=== PATIENT | female | born 1960 | race Caucasian/White ===

== ENCOUNTER → 2016-10-30 17:15 | Outpatient (CLI) | payer OTHER | END | disposition home or self-care (01) | LOC: D.MAMMO 14:15 | DX: Z12.31 Encounter for screening mammogram for malignant neoplasm of breast (principal) ==

== ENCOUNTER 2016-12-13 05:09 | Inpatient (IN) | payer OTHER ==
[~2016-12-13] VITALS: Ht 175.3 cm; Wt 72.7 kg
[2016-12-13 06:27] LABS: BASOPHILS 0.4 % (0-2); EOSINOPHILS 1.3 % (0-7); HEMATOCRIT 33.4 % (36.0-48.0); HEMOGLOBIN 11.6 g/dL (12-16); IMMATURE GRANULOCYTES 0.5 % (0-5); LYMPHOCYTES 16.2 % (15-50); MCH 36.5 pg (26.0-34.0); MCHC 34.7 g/dL (31.0-37.0); MEAN PLATELET VOLUME 12.3 fL (7.4-10.4); NEUTROPHILS 73.6 % (40-80); RBC 3.18 10x6/uL (4.00-5.40); RDW 14.2 % (11.5-14.5); WBC 11.1 10x3/uL (4.8-10.8)
[2016-12-13 06:47] LABS: ALKALINE PHOSPHATASE 145 U/L (46-116); ALT (SGPT) 37 U/L (10-68); BILIRUBIN - TOTAL 5.59 mg/dL (0.2-1.3); CALC OSMOLALITY 267 mosm/kg (275-300); CALCIUM 7.8 mg/dL (8.5-10.1); CARBON DIOXIDE 26.7 mmol/L (21.0-32.0); CHLORIDE - SERUM 97 mmol/L (98-107); CREATININE - SERUM 0.6 mg/dL (0.6-1.3); POTASSIUM - SERUM 3.1 mmol/L (3.5-5.1); PROTEIN - SERUM 7.9 g/dL (6.4-8.2); SODIUM 135 mmol/L (136-145); UREA NITROGEN 7 mg/dL (7-18); eGFR NON AFRICAN AMERICAN > 90 mL/min (90-120)
[2016-12-13 06:51] LABS: GLUCOSE 93 mg/dL (74-106)
[2016-12-13 06:54] LABS: PLATELET COUNT 81 10x3/uL (130-400); PLATELET ESTIMATE DECREASED
[2016-12-13 08:45] LABS: AMYLASE - SERUM 26 U/L (25-115); LIPASE 88 U/L (73-393)
[2016-12-13 08:51] LABS: APPEARANCE HAZY (CLEAR); BILIRUBIN 2+ (NEGATIVE); COLOR AMBER (YELLOW); GLUCOSE NEGATIVE (NEGATIVE); KETONE MODERATE mg/dL (NEGATIVE); LEUKOCYTE ESTERASE 1+ (NEGATIVE); NITRITE NEGATIVE (NEGATIVE); PROTEIN NEGATIVE (NEGATIVE); SPECIFIC GRAVITY 1.015 (1.005-1.020)
[2016-12-13 08:53] LABS: BACTERIA MODERATE /hpf (NONE SEEN); MUCUS <1+ /lpf (NONE SEEN); RED CELLS - URINE RARE /hpf (0-5)
[2016-12-13 08:57] LABS: UDS - AMPHET NEGATIVE QUAL (NEGATIVE); UDS - BARB NEGATIVE QUAL (NEGATIVE); UDS - BENZO POSITIVE QUAL (NEGATIVE); UDS - COCAINE NEGATIVE QUAL (NEGATIVE); UDS - METH NEGATIVE QUAL (NEGATIVE); UDS - OPIATE NEGATIVE QUAL (NEGATIVE); UDS - PCP NEGATIVE QUAL (NEGATIVE); UDS - THC NEGATIVE QUAL (NEGATIVE)
[2016-12-13] MEDS ORDERED: SYNTHROID175 MCG PO (12:22)
[2016-12-13] MEDS ORDERED: GEMFIBROZIL600 MG PO (12:22)
[2016-12-13 12:26] VITALS: BP 131/64
[2016-12-13 13:13] VITALS: BP 131/64; Ht 175.3 cm; Wt 72.7 kg
[2016-12-13 15:41] VITALS: BP 132/69
[2016-12-13 15:44] LABS: BILIRUBIN - DIRECT 2.7 mg/dL (0.00-0.30)
[2016-12-13 16:23] LABS: BILIRUBIN - INDIRECT 2.68 mg/dL (0.00-1.00); BILIRUBIN - TOTAL 5.38 mg/dL (0.2-1.3)
[2016-12-13 20:00] VITALS: BP 99/51
--- NOTE | 2016-12-13 20:30 | NUR ---
RECIEVED AWAKE,ALERT.UP AMBULATING IN ROOM. IV INTACT TO RIGHT FOREARM WITHOUT REDNESS OR EDEMA NOTED.NO COMPLAINTS VOICED AT THIS TIME. DR LOOMIS IN TO SEE PATIENT.
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
[2016-12-14] VITALS: BP 106/60
--- NOTE | 2016-12-14 03:37 | NUR ---
PATIENT RESTING IN BED WITH EYES CLOSED AND NO VISIBLE SIGNS OF DISTRESS. BED IN LOWEST POSITION AND CALL LIGHT WITHIN REACH.
[2016-12-14 04:00] VITALS: BP 95/57
[2016-12-14 04:32] LABS: BASOPHILS 0.5 % (0-2); EOSINOPHILS 2.3 % (0-7); HEMOGLOBIN 10.6 g/dL (12-16); IMMATURE GRANULOCYTES 0.3 % (0-5); LYMPHOCYTES 25.4 % (15-50); MCH 36.3 pg (26.0-34.0); MCHC 34.2 g/dL (31.0-37.0); MCV 106.2 fL (80.0-100.0); MEAN PLATELET VOLUME 13.1 fL (7.4-10.4); MONOCYTES 10.9 % (2-11); NEUTROPHILS 60.6 % (40-80); PLATELET COUNT 75 10x3/uL (130-400); RBC 2.92 10x6/uL (4.00-5.40); RDW 14.4 % (11.5-14.5); WBC 9.3 10x3/uL (4.8-10.8)
[2016-12-14 04:40] LABS: APTT 34.6 SECONDS (22.8-39.4); INR 1.47 (0.85-1.17); PROTIME 17.7 SECONDS (11.6-15.0)
[2016-12-14 04:47] LABS: ALBUMIN 2.7 g/dL (3.4-5.0); ALKALINE PHOSPHATASE 123 U/L (46-116); ALT (SGPT) 30 U/L (10-68); BILIRUBIN - DIRECT 2.41 mg/dL (0.00-0.30); BILIRUBIN - INDIRECT 2.86 mg/dL (0.00-1.00); BILIRUBIN - TOTAL 5.27 mg/dL (0.2-1.3); CALCIUM 7.3 mg/dL (8.5-10.1); CARBON DIOXIDE 26.1 mmol/L (21.0-32.0); CHLORIDE - SERUM 100 mmol/L (98-107); CREATININE - SERUM 0.7 mg/dL (0.6-1.3); MAGNESIUM - SERUM 1.3 mg/dL (1.8-2.4); PHOSPHOROUS 2.5 mg/dL (2.5-4.9); PROTEIN - SERUM 7.1 g/dL (6.4-8.2); SODIUM 136 mmol/L (136-145); UREA NITROGEN 6 mg/dL (7-18); eGFR NON AFRICAN AMERICAN > 90 mL/min (90-120)
[2016-12-14 04:48] LABS: CALC OSMOLALITY 267 mosm/kg (275-300); GLUCOSE 70 mg/dL (74-106); POTASSIUM - SERUM 3.6 mmol/L (3.5-5.1)
--- NOTE | 2016-12-14 05:54 | NUR ---
NO CHANGE IN ASSESSMENT. CL IN REACH
--- NOTE | 2016-12-14 07:30 | NUR ---
RECIEVED PT DURING WALKING ROUNDS, PT SITTING UP IN BED WITH IV ALARMING. MORE FLUID ADDED AT THIS TIME. PT ASKS ABOUT BEING DISCHARGED INFORMED HER THAT THE DOCTOR WOULD HAVE TO PUT IN ORDERS. ASSESSMENT DONE PER FLOWSHEET. BED IN LOW POSITION AND CALL LIGHT WITHIN REACH. WILL CONTINUE TO MONITOR.
[2016-12-14 08:09] VITALS: BP 116/55
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
--- NOTE | 2016-12-14 08:35 | NUR ---
DISCHARGE INSTRUCTIONS GIVEN, PT TOOK OUT OWN IV. DISCHARGED TO HOME.
--- NOTE | 2016-12-14 09:48 | NUR ---
CM attempted to see patient multiple times, and spoke with float coordinator (SALLY) and she stated that the patient was discharged and refused everything and the patient said that she was not an alcoholic and did not need any help, she was not waiting for CM.
== END 2016-12-14 08:58 | disposition home or self-care (01) | DRG 446 ==
LOC: D.ER 05:09 → D.MS 11:54
PROVIDERS: Emergency Medicine; Family Medicine; Radiology Diagnostic Radiology; Surgery; ADMIT Family Medicine
DX: K83.8 Other specified diseases of biliary tract (principal); K70.30 Alcoholic cirrhosis of liver without ascites; D64.9 Anemia, unspecified; D69.6 Thrombocytopenia, unspecified; F10.10 Alcohol abuse, uncomplicated; K82.8 Other specified diseases of gallbladder; E03.9 Hypothyroidism, unspecified; F41.0 Panic disorder [episodic paroxysmal anxiety]; Z81.1 Family history of alcohol abuse and dependence

== ENCOUNTER → 2017-01-10 17:08 | Outpatient (CLI) | payer OTHER ==
[2016-12-13 13:13] VITALS: BMI 23.6
[~2017-01-10 17:08] MED LIST: GEMFIBROZIL600 MG PO; SYNTHROID175 MCG PO
== END | disposition home or self-care (01) ==
LOC: D.MAMMO 12-19 13:30
DX: R92.8 Other abnormal and inconclusive findings on diagnostic imaging of breast (principal)

== ENCOUNTER → 2017-01-18 08:33 | Outpatient (CLI) | payer OTHER ==
[2016-12-13 13:13] VITALS: BMI 23.6
== END | disposition home or self-care (01) ==
LOC: D.MRI 08:00
DX: E80.6 Other disorders of bilirubin metabolism (principal)

== ENCOUNTER → 2017-09-09 19:33 | Outpatient (CLI) | payer OTHER ==
[2016-12-13 13:13] VITALS: BMI 23.6
== END | disposition home or self-care (01) ==
LOC: D.MAMMO 08-20 08:30
DX: R92.8 Other abnormal and inconclusive findings on diagnostic imaging of breast (principal)

== ENCOUNTER → 2017-10-24 08:53 | Outpatient (CLI) | payer OTHER ==
[2016-12-13 13:13] VITALS: BMI 23.6
[2017-10-24 10:30] LABS: INR 1.53 (0.85-1.17); PROTIME 17.9 SECONDS (11.6-15.0)
[2017-10-24 10:34] LABS: % SATURATION 84 % (15-55); IRON 164 ug/dl (35-150); TOTAL IRON BIND CAPACITY 195 ug/dl (260-445)
[2017-10-24 10:35] LABS: UNSAT IRON BIND CAPACITY 31 ug/dl (150-375)
[2017-10-24 10:49] LABS: ALBUMIN 3.2 g/dL (3.4-5.0); BILIRUBIN - DIRECT 1.2 mg/dL (0.00-0.30); BILIRUBIN - INDIRECT 2.18 mg/dL (0.00-1.00); BILIRUBIN - TOTAL 3.38 mg/dL (0.2-1.3); CHOL - HDL RATIO 4.1 ratio (2.3-4.1); LDL-HDL RATIO 2.7 ratio (1.5-3.5); PROTEIN - SERUM 8.9 g/dL (6.4-8.2); T4 THYROXINE 14.3 ug/dL (4.7-13.3); THYROID STIMULATING HORMONE 15.73 uIU/mL (0.36-3.74)
[2017-10-24 11:20] LABS: ERYTHROCYTE SEDIMENTATION RATE 51 mm/hr (0-30)
[2017-10-25 09:23] LABS: HEPATITIS C ANTIBODY <0.1 (0.0-0.9)
[2017-10-25 10:23] LABS: ALPHA FETOPROTEIN -(TUMOR MRK) 10.1 ng/mL (0.0-8.3)
[2017-10-25 12:19] LABS: ANA REFLEX - DIRECT Negative (Negative)
[2017-10-25 14:27] LABS: SPE - A/G RATIO 0.7 (0.7-1.7); SPE - ALBUMIN 3.3 g/dL (2.9-4.4); SPE - ALPHA-1 GLOBULIN 0.2 g/dL (0.0-0.4); SPE - ALPHA-2 GLOBULIN 0.5 g/dL (0.4-1.0); SPE - BETA GLOBULIN 1.5 g/dL (0.7-1.3); SPE - GAMMA GLOBULIN 2.6 g/dL (0.4-1.8); SPE - M-SPIKE Not Observed g/dL (Not Observed); SPE - TOTAL PROTEIN 8.1 g/dL (6.0-8.5)
[2017-10-27 09:08] LABS: SMOOTH MUSCLE ABS (ACTIN) 37 Units (0-19)
== END | disposition home or self-care (01) ==
LOC: D.US 08:53
PROVIDERS: Internal Medicine Gastroenterology
DX: R17 Unspecified jaundice (principal); K72.90 Hepatic failure, unspecified without coma; R94.5 Abnormal results of liver function studies; R11.2 Nausea with vomiting, unspecified

== ENCOUNTER 2018-11-03 20:09 | Inpatient (IN) | payer OTHER ==
[~2018-11-03] VITALS: Ht 175.3 cm; Wt 68.0 kg
--- NOTE | ~2018-11-03 | EC ---
PATIENT:DENISE WHITEHEAD DATE OF SERVICE: 11/03/18 SEX: F MEDICAL RECORD: [id number] DATE OF : 64 LOCATION:D. D.121 AGE OF PATIENT: 58 ADMISSION DATE: 11/03/18 REFERRING PHYSICIAN: INTERPRETING PHYSICIAN: DARLEEN BLAIR MD ECHOCARDIOGRAM REPORT ECHO CHARGES 4 ECHO COMPLETE Date: 11/04/18 CLINICAL DIAGNOSIS: SOB ECHOCARDIOGRAPHIC MEASUREMENTS (adult normal given) AC root (d.<3.7cm) 2.4 cm LV Septum d (<1.2 cm> 0.6 cm Valve Excursion 1.5 cm LV Septum (systole) 1.1 cm Left Atria (s.<4.0cm> 3.5 cm LVPW d(<1.2cm) 0.6 cm RV (d.<2.3cm) 2.9 cm LVPW (sytole) 0.7 cm LV diastole(<5.6CM) 6.1 cm MV E-F(>70mm/sec) cm LV systole 4.9 cm LVOT Diameter 2.0 cm MV exc.(>10mm) cm Est.ejection fraction (50-75%) % DOPPLER: LVIT cm/sec A 80.0 cm/sec E 65.0 cm/sec LA cm/sec RVSP 41.8 mmHg LVOT 183 cm/sec AOP1/2T m/s Asc. Ao 186 cm/sec RVOT 97.0 cm/sec RA cm/sec PA 107 cm/sec AV Gradient Peak 13.9 mmHg AV Mean 8.4 mmHg AV Area 2.6 cm MV Gradient Peak 4.0 mmHg MV Mean 2.9 mmHg MV Area cm COMMENTS: Commodities Manager: Ash [employer] Manager: 1 Dr. Blair TAPE# PACS Pericardial Effusion N DATE OF SERVICE: 11/04/2018 FINDINGS: 1. Left ventricular chamber size is within normal limits. Left ventricular systolic function is normal. Overall ejection fraction estimated at 60%. 2. Left atrium is within normal limits. Right atrium and right ventricular chamber sizes are mildly dilated. 3. Valvular structures have normal structure and motion. 4. Doppler interrogation reveals moderate mitral regurgitation, moderate tricuspid regurgitation, no other valvular insufficiency or stenosis. Pulmonary ECHOCARDIOGRAM REPORT [id number] DENISE WHITEHEAD systolic pressure is mildly elevated, estimated at 42 mmHg. 5. Small pericardial effusion is present. This is not hemodynamically significant. Pleural effusion is noted as well. 6. No evidence of left ventricular thrombus. TRANSINT:[id number] Voice Confirmation ID: [id number] DOCUMENT ID: [id number] DARLEEN BLAIR MD CC: [id number] DICTATION DATE: 11/05/18 1020 HEART COORDINATOR: 11/05/18 1104 ADM IN [facility] [address] [id number]
[2018-11-03] MEDS ORDERED: ALDACTONE25 MG PO (20:34)
[2018-11-03 21:34] LABS: BASOPHILS 0.9 % (0-2); EOSINOPHILS 0.7 % (0-7); IMMATURE GRANULOCYTES 1.2 % (0-5); LYMPHOCYTES 30.7 % (15-50); MCH 40.8 pg (26.0-34.0); MCHC 34.1 g/dL (31.0-37.0); MCV 119.6 fL (80.0-100.0); MEAN PLATELET VOLUME 9.2 fL (7.4-10.4); MONOCYTES 18.2 % (2-11); NEUTROPHILS 48.3 % (40-80); RDW 15.6 % (11.5-14.5); WBC 7.6 10x3/uL (4.8-10.8)
[2018-11-03 21:45] LABS: APTT 48.4 SECONDS (22.8-39.4); INR 4.37 (0.85-1.17); PROTIME 40.9 SECONDS (11.6-15.0)
[2018-11-03 21:47] LABS: HEMOGLOBIN 7.5 g/dL (12-16); PLATELET COUNT 104 10x3/uL (130-400); RBC 1.84 10x6/uL (4.00-5.40)
[2018-11-03 22:02] LABS: ALBUMIN 2.1 g/dL (3.4-5.0); ALKALINE PHOSPHATASE 166 U/L (46-116); ALT (SGPT) 42 U/L (10-68); BILIRUBIN - TOTAL 14.02 mg/dL (0.2-1.3); CALC OSMOLALITY 270 mosm/kg (275-300); CALCIUM 8.2 mg/dL (8.5-10.1); CARBON DIOXIDE 29.2 mmol/L (21.0-32.0); CHLORIDE - SERUM 96 mmol/L (98-107); CREATININE - SERUM 0.6 mg/dL (0.6-1.3); POTASSIUM - SERUM 4.1 mmol/L (3.5-5.1); PROTEIN - SERUM 7.4 g/dL (6.4-8.2); SODIUM 133 mmol/L (136-145); UREA NITROGEN 7 mg/dL (7-18); eGFR NON AFRICAN AMERICAN > 90 mL/min (90-120)
[2018-11-03 22:04] LABS: GLUCOSE 221 mg/dL (74-106)
[2018-11-03 22:09] VITALS: BP 117/64
[2018-11-03 22:10] LABS: CKMB 0.7 U/L (0.0-3.6); CREATINE KINASE 50 UL (21-215); PRO BNP 305 pg/mL (0-125)
[2018-11-03 22:11] LABS: TROPONIN-I < 0.017 ng/mL (0.000-0.060)
[2018-11-03 23:52] VITALS: BP 124/52
[2018-11-04] VITALS (8 sets, daily range): BP systolic 97–123; BP diastolic 38–63; Ht 175.3 cm; Wt 68.0 kg
[2018-11-04 00:26] LABS: BILIRUBIN - DIRECT 6.08 mg/dL (0.00-0.30); BILIRUBIN - INDIRECT 7.94 mg/dL (0.00-1.00)
[2018-11-04 09:01] LABS: APTT 48.8 SECONDS (22.8-39.4); MCH 36.5 pg (26.0-34.0); MCHC 35.2 g/dL (31.0-37.0); MEAN PLATELET VOLUME 9.5 fL (7.4-10.4)
[2018-11-04 09:04] LABS: HEMATOCRIT 28.4 % (36.0-48.0); MCV 103.6 fL (80.0-100.0); PLATELET COUNT 81 10x3/uL (130-400); RBC 2.74 10x6/uL (4.00-5.40); WBC 3.6 10x3/uL (4.8-10.8)
[2018-11-04 09:09] LABS: % SATURATION 62 % (15-55); IRON 80 ug/dl (35-150); TOTAL IRON BIND CAPACITY 128 ug/dl (260-445)
[2018-11-04 09:10] LABS: UNSAT IRON BIND CAPACITY 48 ug/dl (150-375)
[2018-11-04 09:18] LABS: INR 3.61 (0.85-1.17); PROTIME 36.3 SECONDS (11.6-15.0)
[2018-11-04 09:43] LABS: ALBUMIN 2.1 g/dL (3.4-5.0); ALKALINE PHOSPHATASE 168 U/L (46-116); ALT (SGPT) 45 U/L (10-68); BILIRUBIN - TOTAL 14.65 mg/dL (0.2-1.3); CALCIUM 7.9 mg/dL (8.5-10.1); CARBON DIOXIDE 22.9 mmol/L (21.0-32.0); CHLORIDE - SERUM 95 mmol/L (98-107); POTASSIUM - SERUM 4.2 mmol/L (3.5-5.1); PROTEIN - SERUM 7.7 g/dL (6.4-8.2); SODIUM 130 mmol/L (136-145); T4 THYROXIN - FREE 1.46 ng/dL (0.76-1.46); THYROID STIMULATING HORMONE 1.77 uIU/mL (0.36-3.74); UREA NITROGEN 7 mg/dL (7-18)
[2018-11-04 09:46] LABS: CALC OSMOLALITY 271 mosm/kg (275-300); CREATININE - SERUM 0.3 mg/dL (0.6-1.3); FERRITIN 1698 ng/mL (3-244); GLUCOSE 324 mg/dL (74-106); MAGNESIUM - SERUM 1.4 mg/dL (1.8-2.4); eGFR NON AFRICAN AMERICAN > 90 mL/min (90-120)
[2018-11-04 09:56] LABS: LYMPHOCYTES 11 % (15-50); MONOCYTES 4 % (2-11); NEUTROPHILS 84 % (40-80); PLATELET ESTIMATE DECREASED
[2018-11-04 14:14] LABS: APPEARANCE CLEAR (CLEAR); BILIRUBIN NEGATIVE (NEGATIVE); COLOR YELLOW (YELLOW); GLUCOSE 1000 mg/dL (NEGATIVE); KETONE NEGATIVE (NEGATIVE); NITRITE NEGATIVE (NEGATIVE); PROTEIN NEGATIVE (NEGATIVE); UROBILINOGEN NORMAL (NORMAL)
[2018-11-05] VITALS (7 sets, daily range): BP systolic 104–118; BP diastolic 35–63
[2018-11-05 07:03] LABS: BASOPHILS 0 % (0-2); EOSINOPHILS 0 % (0-7); HEMATOCRIT 25.6 % (36.0-48.0); IMMATURE GRANULOCYTES 0.4 % (0-5); LYMPHOCYTES 6.7 % (15-50); MCH 36.3 pg (26.0-34.0); MCHC 35.2 g/dL (31.0-37.0); MCV 103.2 fL (80.0-100.0); MEAN PLATELET VOLUME 9.2 fL (7.4-10.4); MONOCYTES 8.4 % (2-11); NEUTROPHILS 84.5 % (40-80); PLATELET COUNT 76 10x3/uL (130-400); RBC 2.48 10x6/uL (4.00-5.40)
[2018-11-05 07:19] LABS: WBC 9.2 10x3/uL (4.8-10.8)
[2018-11-05 07:29] LABS: APTT 51.1 SECONDS (22.8-39.4); INR 4.95 (0.85-1.17)
[2018-11-05 07:30] LABS: PROTIME 45.2 SECONDS (11.6-15.0)
[2018-11-05 07:56] LABS: ALBUMIN 2.1 g/dL (3.4-5.0); ALKALINE PHOSPHATASE 151 U/L (46-116); ALT (SGPT) 42 U/L (10-68); CALC OSMOLALITY 280 mosm/kg (275-300); CALCIUM 7.5 mg/dL (8.5-10.1); CARBON DIOXIDE 30.9 mmol/L (21.0-32.0); CHLORIDE - SERUM 96 mmol/L (98-107); CREATININE - SERUM 0.5 mg/dL (0.6-1.3); MAGNESIUM - SERUM 1.2 mg/dL (1.8-2.4); POTASSIUM - SERUM 3.5 mmol/L (3.5-5.1); SODIUM 132 mmol/L (136-145); UREA NITROGEN 10 mg/dL (7-18); eGFR NON AFRICAN AMERICAN > 90 mL/min (90-120)
[2018-11-05 08:06] LABS: GLUCOSE 409 mg/dL (74-106)
[2018-11-05 08:37] LABS: PLATELET ESTIMATE DECREASED
[2018-11-05 08:38] LABS: ANISOCYTOSIS 1+; POIKILOCYTOSIS OCC; TARGET CELLS OCC
[2018-11-05 08:39] LABS: CRENATED CELLS OCC; ROULEAUX OCC
[2018-11-05 12:12] LABS: FOLATE (FOLIC ACID) - SERUM 7.1 ng/mL (>3.0)
--- NOTE | 2018-11-05 14:07 | MORECARE ---
CASE MANAGEMENT DISCHARGE SUMMARY PATIENT: DENISE WHITEHEAD AG UNIT: [id number] ADM DATE: 11/03/18 AGE: 58 : 64 SEX: F ROOM/BED: D.1213 AUTHOR: MARY BRITTON PHYSICIAN: REFERRING PHYSICIAN: RESHMA REYES MD DATE OF SERVICE: 11/05/18 Discharge Plan Patient Name: DENISE WHITEHEAD [facility] [facility] 1960 Planned Disposition: Home Anticipated Discharge Date: 11/07/18 Discharge Date: Expected LOS: 4 Initial Reviewer: [email or web address] Initial Review Date: 11/04/2018 Generated: 11/05/18 3:07 pm DCPIA - Discharge Planning Initial Assessment Updated by [email or web address]: Thi Portillo on 11/05/18 2:06 pm * Is the patient Alert and Oriented? Yes * How many steps to enter\exit or inside your home? * PCP does not have a PCP * Pharmacy [facility] [address] * Preadmission Environment Home Alone * ADLs Independent * Equipment Cane Rolling Walker * List name and contact numbers for known caregivers / representatives who currently or will assist patient after discharge: Asuncion Smith - Sister - [phone] Jammie Rust - mother - [phone] * Verbal permission to speak to the caregivers and representatives has been obtained from the patient. Yes * Community resources currently utilized None * Additional services required to return to the preadmission environment? No * Can the patient safely return to the preadmission environment? Yes * Has this patient been hospitalized within the prior 30 days at any hospital? No Patient Name: DENISE WHITEHEAD Page [id number] at 1407 All edits/amendments must be made on the electronic document DICTATION DATE: 11/05/181406 ASH HANDLER: HIEU 11/05/187 RPT#: [id number] DC DATE: STATUS: ADM IN [facility] [address] [place] [address] END OF REPORT
[2018-11-05 14:11] LABS: ALPHA FETOPROTEIN -(TUMOR MRK) 3.2 ng/mL (0.0-8.3); CA125 458.6 U/mL (0.0-38.1)
--- NOTE | 2018-11-05 14:17 | MORECARE ---
CASE MANAGEMENT DISCHARGE SUMMARY PATIENT: DENISE WHITEHEAD UNIT: [id number] ADM DATE: 11/03/18 AGE: 58 : 64 SEX: F ROOM/BED: D.1213 AUTHOR: REBADOC PHYSICIAN: REFERRING PHYSICIAN: RESHMA REYES MD DATE OF SERVICE: 11/05/18 Discharge Plan Patient Name: DENISE WHITEHEAD Facility: [facility]:[place] : 1960 Planned Disposition: Home Anticipated Discharge Date: 11/07/18 Discharge Date: Expected LOS: 4 Initial Reviewer: [email or web address] Initial Review Date: 11/04/2018 Generated: 11/05/18 3:17 pm Comments DCP- Discharge Planning Updated by [email or web address]: Thi Portillo on 11/05/18 1:[address] Patient Name: DENISE WHITEHEAD Admission Status: ER Accout number: [id number] Admission Date: 11-03-2018 : 1960 Admission Diagnosis: Attending: RESHMA REYES Current LOS: 2 Anticipated DC Date: 11-07-2018 Planned Disposition: Home Primary Insurance: [facility] MEDICAID DC PLANNING NOTE: CM met with patient to complete initial dc planning assessment. CM educated patient on the CM role and verbal consent given by patient to complete assessment. CM verified address, phone number, and emergency contact names and numbers. Patient lives at home alone and verbalized she is independent in her care at home. At discharge patient plans to return home alone and feels this is a safe discharge. CM discussed availability of home health, rehab services, and medical equipment. Patient denied known discharge needs at this time. CM will continue to follow and will assist as needed with dc plans/needs. Outreach Nurse: Thi Portillo RN, [facility] DCPIA - Discharge Planning Initial Assessment Updated by [email or web address]: Thi Portillo on 11/05/18 2:06 pm * Is the patient Alert and Oriented? Yes * How many steps to enter\exit or inside your home? * PCP does not have a PCP * Pharmacy [facility] [address] * Preadmission Environment Home Alone * ADLs Independent * Equipment Cane Rolling Walker * List name and contact numbers for known caregivers / representatives who currently or will assist patient after discharge: Asuncion Smith - Sister - [phone] Jammie Rust - mother - [phone] * Verbal permission to speak to the caregivers and representatives has been obtained from the patient. Yes * Community resources currently utilized None * Additional services required to return to the preadmission environment? No * Can the patient safely return to the preadmission environment? Yes * Has this patient been hospitalized within the prior 30 days at any hospital? No Last DP export: 11/05/18 1:07 p Patient Name: DENISE WHITEHEAD Page 34121 at 1417 All edits/amendments must be made on the electronic document DICTATION DATE: 11/05/181415 [place] ATTENDANT: HIEU 11/05/181415 RPT#: [id number] DC DATE: STATUS: ADM IN [facility] [address] [place] [address] END OF REPORT
[2018-11-05 20:06] LABS: HEPATITIS C ANTIBODY 0.1 S/CO RAT (0.0-0.9)
[2018-11-06] VITALS: BP 105/34
[2018-11-06 04:00] VITALS: BP 113/51
[2018-11-06 07:10] LABS: BASOPHILS 0.1 % (0-2); EOSINOPHILS 0.9 % (0-7); HEMATOCRIT 25.8 % (36.0-48.0); IMMATURE GRANULOCYTES 0.4 % (0-5); LYMPHOCYTES 20.1 % (15-50); MCH 36.7 pg (26.0-34.0); MCHC 34.9 g/dL (31.0-37.0); MEAN PLATELET VOLUME 10.3 fL (7.4-10.4); MONOCYTES 12.5 % (2-11); PLATELET COUNT 79 10x3/uL (130-400); RBC 2.45 10x6/uL (4.00-5.40); WBC 9.2 10x3/uL (4.8-10.8)
[2018-11-06 07:11] LABS: MCV 105.3 fL (80.0-100.0)
[2018-11-06 07:15] LABS: ALKALINE PHOSPHATASE 172 U/L (46-116); ALT (SGPT) 46 U/L (10-68); BILIRUBIN - TOTAL 14.57 mg/dL (0.2-1.3); CALC OSMOLALITY 266 mosm/kg (275-300); CALCIUM 7.6 mg/dL (8.5-10.1); CARBON DIOXIDE 33.4 mmol/L (21.0-32.0); CHLORIDE - SERUM 94 mmol/L (98-107); CREATININE - SERUM 0.4 mg/dL (0.6-1.3); MAGNESIUM - SERUM 1.1 mg/dL (1.8-2.4); PROTEIN - SERUM 6.6 g/dL (6.4-8.2); SODIUM 133 mmol/L (136-145); UREA NITROGEN 9 mg/dL (7-18); eGFR NON AFRICAN AMERICAN > 90 mL/min (90-120)
[2018-11-06 07:18] LABS: GLUCOSE 139 mg/dL (74-106)
[2018-11-06 07:24] LABS: APTT 45.7 SECONDS (22.8-39.4); INR 4.47 (0.85-1.17); PROTIME 41.7 SECONDS (11.6-15.0)
[2018-11-06 08:25] LABS: PLATELET ESTIMATE DECREASED
[2018-11-06 08:27] LABS: CRENATED CELLS OCC
[2018-11-06 09:41] VITALS: BP 129/64
[2018-11-06 15:40] LABS: UDS - AMPHET NEGATIVE QUAL (NEGATIVE); UDS - BARB NEGATIVE QUAL (NEGATIVE); UDS - BENZO POSITIVE QUAL (NEGATIVE); UDS - COCAINE NEGATIVE QUAL (NEGATIVE); UDS - OPIATE NEGATIVE QUAL (NEGATIVE); UDS - PCP NEGATIVE QUAL (NEGATIVE); UDS - THC NEGATIVE QUAL (NEGATIVE)
[2018-11-06 18:51] VITALS: BP 137/73
[2018-11-06 18:58] VITALS: BP 133/77
[2018-11-06 20:00] VITALS: BP 135/107
[2018-11-07] VITALS: BP 117/51
[2018-11-07 04:00] VITALS: BP 119/44
[2018-11-07 08:16] LABS: BASOPHILS 0.2 % (0-2); EOSINOPHILS 0.8 % (0-7); HEMATOCRIT 26.8 % (36.0-48.0); IMMATURE GRANULOCYTES 0.2 % (0-5); LYMPHOCYTES 16.3 % (15-50); MCHC 33.6 g/dL (31.0-37.0); MCV 107.2 fL (80.0-100.0); MEAN PLATELET VOLUME 9.7 fL (7.4-10.4); MONOCYTES 7.5 % (2-11); PLATELET COUNT 70 10x3/uL (130-400); WBC 8.5 10x3/uL (4.8-10.8)
[2018-11-07 08:21] LABS: ALKALINE PHOSPHATASE 167 U/L (46-116); ALT (SGPT) 48 U/L (10-68); BILIRUBIN - TOTAL 15.11 mg/dL (0.2-1.3); CALCIUM 7.8 mg/dL (8.5-10.1); CARBON DIOXIDE 35.7 mmol/L (21.0-32.0); CHLORIDE - SERUM 93 mmol/L (98-107); CREATININE - SERUM 0.5 mg/dL (0.6-1.3); MAGNESIUM - SERUM 1.2 mg/dL (1.8-2.4); PROTEIN - SERUM 6.8 g/dL (6.4-8.2); SODIUM 132 mmol/L (136-145); UREA NITROGEN 10 mg/dL (7-18); eGFR NON AFRICAN AMERICAN > 90 mL/min (90-120)
[2018-11-07 08:26] LABS: INR 3.64 (0.85-1.17); PROTIME 35.4 SECONDS (11.6-15.0)
[2018-11-07 08:50] LABS: CALC OSMOLALITY 269 mosm/kg (275-300); GLUCOSE 204 mg/dL (74-106)
[2018-11-07 08:53] LABS: POTASSIUM - SERUM 2.9 mmol/L (3.5-5.1)
[2018-11-07 09:41] VITALS: BP 111/48
[2018-11-07 13:53] VITALS: BP 118/42
[2018-11-07 17:56] LABS: MAGNESIUM - SERUM 1.9 mg/dL (1.8-2.4)
--- NOTE | 2018-11-07 17:56 | MORECARE ---
CASE MANAGEMENT DISCHARGE SUMMARY PATIENT: DENISE WHITEHEAD UNIT: [id number] ADM DATE: 11/03/18 AGE: 58 : 64 SEX: F ROOM/BED: D.1213 AUTHOR: MARY BRITTON PHYSICIAN: REFERRING PHYSICIAN: RESHMA REYES MD DATE OF SERVICE: 11/07/18 Discharge Plan Patient Name: DENISE WHITEHEAD Facility: [facility]:[place] : 1960 Planned Disposition: Home Anticipated Discharge Date: 11/07/18 Discharge Date: Expected LOS: 4 Initial Reviewer: [email or web address] Initial Review Date: 11/04/2018 Generated: 11/07/18 6:55 pm Comments DCP- Discharge Planning Updated by [email or web address]: Otilia Camilo on 11/07/18 4:[address] CM RECEIVED CONSULT ORDER FOR REHAB. ORDERS OBTAINED FOR PHYSICAL THERAPY EVAL AND OT EVAL. PATIENT FOUND SITTING ON FLOOR IN THE BATHROOM TODAY. CM TO DISCUSS REHAB WITH THE PATIENT WHEN EVALUATIONS HAVE BEEN COMPLETED. PATIENT WILL REQUIRE PRECERT BY INSURER SHE HAD [employer] MANA[employer]ED MEDICARE. THE EVALS WILL BE REQUIRED FOR REHAB EVALUATIONS AND INSURANCE PRECERTIFICATION. DCP- Discharge Planning Updated by [email or web address]: Thi Portillo on 11/05/18 1:[address] Patient Name: DENISE WHITEHEAD Admission Status: ER Accout number: [id number] Admission Date: 11-03-2018 : 1960 Admission Diagnosis: Attending: RESHMA REYES Current LOS: 2 Anticipated DC Date: 11-07-2018 Planned Disposition: Home Primary Insurance: [employer] DC PLANNING NOTE: CM met with patient to complete initial dc planning assessment. CM educated patient on the CM role and verbal consent given by patient to complete assessment. CM verified address, phone number, and emergency contact names and numbers. Patient lives at home alone and verbalized she is independent in her care at home. At discharge patient plans to return home alone and feels this is a safe discharge. CM discussed availability of home health, rehab services, and medical equipment. Patient denied known discharge needs at this time. CM will continue to follow and will assist as needed with dc plans/needs. Reconstructive Dentist: Thi Portillo RN, [facility] DCPIA - Discharge Planning Initial Assessment Updated by [email or web address]: Thi Portillo on 11/05/18 2:06 pm * Is the patient Alert and Oriented? Yes * How many steps to enter\exit or inside your home? * PCP does not have a PCP * Pharmacy [facility] [address] * Preadmission Environment Home Alone * ADLs Independent * Equipment Cane Rolling Walker * List name and contact numbers for known caregivers / representatives who currently or will assist patient after discharge: Asuncion Smith - Sister - [phone] Jammie Rust - mother - [phone] * Verbal permission to speak to the caregivers and representatives has been obtained from the patient. Yes * Community resources currently utilized None * Additional services required to return to the preadmission environment? No * Can the patient safely return to the preadmission environment? Yes * Has this patient been hospitalized within the prior 30 days at any hospital? No Last DP export: 11/05/18 1:17 p Patient Name: DENISE WHITEHEAD Page 96154 at 1756 All edits/amendments must be made on the electronic document DICTATION DATE: 11/07/181754 WHEEL CUTTER: HIEU 11/07/181754 RPT#: [id number] MA DATE: STATUS: ADM IN [facility] [address] [place] [address] END OF REPORT
[2018-11-07 19:43] VITALS: BP 124/54
[2018-11-08 00:58] VITALS: BP 112/46
[2018-11-08 04:43] VITALS: BP 120/64
[2018-11-08 05:33] LABS: BASOPHILS 0.2 % (0-2); EOSINOPHILS 0.9 % (0-7); HEMATOCRIT 25.9 % (36.0-48.0); HEMOGLOBIN 8.8 g/dL (12-16); IMMATURE GRANULOCYTES 0.3 % (0-5); LYMPHOCYTES 12.8 % (15-50); MCH 36.7 pg (26.0-34.0); MCV 107.9 fL (80.0-100.0); MEAN PLATELET VOLUME 9.4 fL (7.4-10.4); MONOCYTES 14.9 % (2-11); NEUTROPHILS 70.9 % (40-80); PLATELET COUNT 62 10x3/uL (130-400); WBC 8.9 10x3/uL (4.8-10.8)
[2018-11-08 05:49] LABS: APTT 45.5 SECONDS (22.8-39.4); INR 3.81 (0.85-1.17); PROTIME 36.7 SECONDS (11.6-15.0)
[2018-11-08 05:59] LABS: ALKALINE PHOSPHATASE 153 U/L (46-116); ALT (SGPT) 47 U/L (10-68); BILIRUBIN - TOTAL 15.82 mg/dL (0.2-1.3); CALC OSMOLALITY 265 mosm/kg (275-300); CALCIUM 8.3 mg/dL (8.5-10.1); CARBON DIOXIDE 35.1 mmol/L (21.0-32.0); CHLORIDE - SERUM 93 mmol/L (98-107); CREATININE - SERUM 0.4 mg/dL (0.6-1.3); GLUCOSE 212 mg/dL (74-106); MAGNESIUM - SERUM 1.5 mg/dL (1.8-2.4); POTASSIUM - SERUM 4.3 mmol/L (3.5-5.1); PROTEIN - SERUM 6.6 g/dL (6.4-8.2); SODIUM 130 mmol/L (136-145); UREA NITROGEN 11 mg/dL (7-18); eGFR NON AFRICAN AMERICAN > 90 mL/min (90-120)
[2018-11-08 07:05] LABS: PLATELET ESTIMATE DECREASED; PLATELET MORPHOLOGY NORMAL PLT MORPH
[2018-11-08 08:14] VITALS: BP 115/38
[2018-11-08 13:17] VITALS: BP 114/41
[2018-11-08 16:09] VITALS: BP 116/47
[2018-11-08 20:08] VITALS: BP 121/43
[2018-11-09 00:20] VITALS: BP 130/50
[2018-11-09 04:58] VITALS: BP 129/50
[2018-11-09 07:41] LABS: BASOPHILS 0.3 % (0-2); HEMATOCRIT 25.1 % (36.0-48.0); HEMOGLOBIN 8.6 g/dL (12-16); IMMATURE GRANULOCYTES 0.6 % (0-5); LYMPHOCYTES 13.1 % (15-50); MCH 37.1 pg (26.0-34.0); MCHC 34.3 g/dL (31.0-37.0); MCV 108.2 fL (80.0-100.0); MEAN PLATELET VOLUME 9.7 fL (7.4-10.4); MONOCYTES 10.5 % (2-11); NEUTROPHILS 74.5 % (40-80); PLATELET COUNT 65 10x3/uL (130-400); RBC 2.32 10x6/uL (4.00-5.40); WBC 11.1 10x3/uL (4.8-10.8)
[2018-11-09 07:53] LABS: APTT 45.6 SECONDS (22.8-39.4); INR 3.59 (0.85-1.17)
[2018-11-09 08:03] LABS: ALKALINE PHOSPHATASE 163 U/L (46-116); ALT (SGPT) 42 U/L (10-68); BILIRUBIN - TOTAL 17.21 mg/dL (0.2-1.3); CALC OSMOLALITY 263 mosm/kg (275-300); CALCIUM 8.3 mg/dL (8.5-10.1); CARBON DIOXIDE 31.9 mmol/L (21.0-32.0); CHLORIDE - SERUM 89 mmol/L (98-107); CREATININE - SERUM 0.5 mg/dL (0.6-1.3); GLUCOSE 255 mg/dL (74-106); MAGNESIUM - SERUM 1.4 mg/dL (1.8-2.4); POTASSIUM - SERUM 3.8 mmol/L (3.5-5.1); PROTEIN - SERUM 6.6 g/dL (6.4-8.2); SODIUM 127 mmol/L (136-145); UREA NITROGEN 13 mg/dL (7-18); eGFR NON AFRICAN AMERICAN > 90 mL/min (90-120)
[2018-11-09 09:58] VITALS: BP 102/48
[2018-11-09] MEDS ORDERED: XIFAXAN550 MG PO (13:21)
[2018-11-09] MEDS ORDERED: PROTONIX40 MG PO (13:22)
[2018-11-09] MEDS ORDERED: SYNTHROID75 MCG PO (13:22)
[2018-11-09 19:43] VITALS: BP 115/45
[2018-11-10 04:34] VITALS: BP 114/43
[2018-11-10 08:27] VITALS: BP 115/50
--- NOTE | 2018-11-10 11:35 | MORECARE ---
CASE MANAGEMENT DISCHARGE SUMMARY PATIENT: DENISE WHITEHEAD UNIT: [id number] ADM DATE: 11/03/18 AGE: 58 : 64 SEX: F ROOM/BED: D.1213 AUTHOR: MARY BRITTON PHYSICIAN: REFERRING PHYSICIAN: RESHMA REYES MD DATE OF SERVICE: 11/10/18 Discharge Plan Patient Name: DENISE WHITEHEAD Facility: [facility]:[place] : 1960 Planned Disposition: Home Anticipated Discharge Date: 11/07/18 Discharge Date: Expected LOS: 4 Initial Reviewer: [email or web address] Initial Review Date: 11/04/2018 Generated: 11/10/18 12:35 pm Comments DCP- Discharge Planning Updated by [email or web address]: Iva Shore on 11/10/18 10:[address] PATIENT HAD DISCHARGE ORDER FOR YESTERDAY TO GO HOME WITH HOSPICE. NO CM NOTE IN SYSTEM. PATIENTS FAMILY HAS CALLED [facility] AND MADE THE ARRANGEMENTS ON THEIR OWN. THEY ARE SETTING UP EQUIPMENT AND WHEN THE HOME IS READY, THEY WILL CALL WHEN EVERYTHING IS SET UP. MARGUERITE MCCAIN LPN HAS BEEN IN CONTACT WITH DELMA GARRISON WITH HOSPICE. NO INFORMATION WILL BE FAXED PT HAS MET CRITERIA FOR ADMISSION ONCE HOME. THE INFOMATION THEY NEED WILL BE IN THE DISCHARGE PAPERWORK. DCP- Discharge Planning Updated by [email or web address]: Otilia Camilo on 11/07/18 4:[address] CM RECEIVED CONSULT ORDER FOR REHAB. ORDERS OBTAINED FOR PHYSICAL THERAPY EVAL AND OT EVAL. PATIENT FOUND SITTING ON FLOOR IN THE BATHROOM TODAY. CM TO DISCUSS REHAB WITH THE PATIENT WHEN EVALUATIONS HAVE BEEN COMPLETED. PATIENT WILL REQUIRE PRECERT BY INSURER SHE HAD [employer] MANA[employer]ED MEDICARE. THE EVALS WILL BE REQUIRED FOR REHAB EVALUATIONS AND INSURANCE PRECERTIFICATION. DCP- Discharge Planning Updated by [email or web address]: Thi Portillo on 11/05/18 1:[address] Patient Name: DENISE WHITEHEAD Admission Status: ER Accout number: [id number] Admission Date: 11-03-2018 : 1960 Admission Diagnosis: Attending: RESHMA REYES Current LOS: 2 Anticipated DC Date: 11-07-2018 Planned Disposition: Home Primary Insurance: [employer] DC PLANNING NOTE: CM met with patient to complete initial dc planning assessment. CM educated patient on the CM role and verbal consent given by patient to complete assessment. CM verified address, phone number, and emergency contact names and numbers. Patient lives at home alone and verbalized she is independent in her care at home. At discharge patient plans to return home alone and feels this is a safe discharge. CM discussed availability of home health, rehab services, and medical equipment. Patient denied known discharge needs at this time. CM will continue to follow and will assist as needed with dc plans/needs. Masking Machine Operator: Thi Portillo RN, [facility] DCPIA - Discharge Planning Initial Assessment Updated by [email or web address]: Thi Portillo on 11/05/18 2:06 pm * Is the patient Alert and Oriented? Yes * How many steps to enter\exit or inside your home? * PCP does not have a PCP * Pharmacy [facility] [address] * Preadmission Environment Home Alone * ADLs Independent * Equipment Cane Rolling Walker * List name and contact numbers for known caregivers / representatives who currently or will assist patient after discharge: Asuncion Smith - Sister - [phone] Jammie Rust - mother - [phone] * Verbal permission to speak to the caregivers and representatives has been obtained from the patient. Yes * Community resources currently utilized None * Additional services required to return to the preadmission environment? No * Can the patient safely return to the preadmission environment? Yes * Has this patient been hospitalized within the prior 30 days at any hospital? No Last DP export: 11/07/18 4:56 p Patient Name: DENISE WHITEHEAD Page 27294 at 1135 All edits/amendments must be made on the electronic document DICTATION DATE: 11/10/18 1134 DIRECTOR OF DEVELOPMENT AND MARKETING: HIEU 11/10/18 1134 RPT#: [id number] DC DATE: STATUS: ADM IN [facility] [address] [place] [address] END OF REPORT
--- NOTE | 2018-11-11 08:20 | MORECARE ---
CASE MANAGEMENT DISCHARGE SUMMARY PATIENT: DENISE WHITEHEAD UNIT: [id number] ADM DATE: 11/03/18 AGE: 58 : 64 SEX: F ROOM/BED: D.1213 AUTHOR: REBADOC PHYSICIAN: REFERRING PHYSICIAN: RESHMA REYES MD DATE OF SERVICE: 11/11/18 Discharge Plan Patient Name: DENISE WHITEHEAD Facility: [facility]:[place] : 1960 Planned Disposition: Home Anticipated Discharge Date: 11/07/18 Discharge Date: 11/10/2018 Expected LOS: 4 Initial Reviewer: [email or web address] Initial Review Date: 11/04/2018 Generated: 11/11/18 9:20 am Comments DCP- Discharge Planning Updated by [email or web address]: Iva Shore on 11/10/18 10:[address] PATIENT HAD DISCHARGE ORDER FOR YESTERDAY TO GO HOME WITH HOSPICE. NO CM NOTE IN SYSTEM. PATIENTS FAMILY HAS CALLED [facility] AND MADE THE ARRANGEMENTS ON THEIR OWN. THEY ARE SETTING UP EQUIPMENT AND WHEN THE HOME IS READY, THEY WILL CALL WHEN EVERYTHING IS SET UP. MARGUERITE MCCAIN LPN HAS BEEN IN CONTACT WITH DELMA GARRISON WITH HOSPICE. NO INFORMATION WILL BE FAXED PT HAS MET CRITERIA FOR ADMISSION ONCE HOME. THE INFOMATION THEY NEED WILL BE IN THE DISCHARGE PAPERWORK. DCP- Discharge Planning Updated by [email or web address]: Otilia Camilo on 11/07/18 4:[address] CM RECEIVED CONSULT ORDER FOR REHAB. ORDERS OBTAINED FOR PHYSICAL THERAPY EVAL AND OT EVAL. PATIENT FOUND SITTING ON FLOOR IN THE BATHROOM TODAY. CM TO DISCUSS REHAB WITH THE PATIENT WHEN EVALUATIONS HAVE BEEN COMPLETED. PATIENT WILL REQUIRE PRECERT BY INSURER SHE HAD [employer] MANAGED MEDICARE. THE EVALS WILL BE REQUIRED FOR REHAB EVALUATIONS AND INSURANCE PRECERTIFICATION. DCP- Discharge Planning Updated by [email or web address]: Thi Portillo on 11/05/18 1:[address] Patient Name: DENISE WHITEHEAD Admission Status: ER Accout number: [id number] Admission Date: 11-03-2018 : 1960 Admission Diagnosis: Attending: RESHMA REYES Current LOS: 2 Anticipated DC Date: 11-07-2018 Planned Disposition: Home [facility] DC PLANNING NOTE: CM met with patient to complete initial dc planning assessment. CM educated patient on the CM role and verbal consent given by patient to complete assessment. CM verified address, phone number, and emergency contact names and numbers. Patient lives at home alone and verbalized she is independent in her care at home. At discharge patient plans to return home alone and feels this is a safe discharge. CM discussed availability of home health, rehab services, and medical equipment. Patient denied known discharge needs at this time. CM will continue to follow and will assist as needed with dc plans/needs. Animal Attendants And Trainers: Thi Portillo RN, [facility] DCPIA - Discharge Planning Initial Assessment Updated by [email or web address]: Thi Portillo on 11/05/18 2:06 pm * Is the patient Alert and Oriented? Yes * How many steps to enter\exit or inside your home? * PCP does not have a PCP * Pharmacy [facility] [address] * Preadmission Environment Home Alone * ADLs Independent * Equipment Cane Rolling Walker * List name and contact numbers for known caregivers / representatives who currently or will assist patient after discharge: Asuncion Smith - Sister - [phone] Jammie Rust - mother - [phone] * Verbal permission to speak to the caregivers and representatives has been obtained from the patient. Yes * Community resources currently utilized None * Additional services required to return to the preadmission environment? No * Can the patient safely return to the preadmission environment? Yes * Has this patient been hospitalized within the prior 30 days at any hospital? No Last DP export: 11/10/18 10:35 a Patient Name: DENISE WHITEHEAD Page 95070 at 0820 All edits/amendments must be made on the electronic document DICTATION DATE: 11/11/18818 BATCHMAKER: HIEU 11/11/18818 RPT#: [id number] DC DATE:11/10/18 STATUS: DIS IN [facility] [address] [place] [address] END OF REPORT
== END 2018-11-10 16:32 | disposition home health service (06) | DRG 433 ==
LOC: D.ER 20:09 → D.M3 22:30
PROVIDERS: Family Medicine; Internal Medicine Hematology & Oncology; ADMIT Internal Medicine Nephrology; ATTEND Internal Medicine Nephrology
DX: K70.30 Alcoholic cirrhosis of liver without ascites (principal); E87.1 Hypo-osmolality and hyponatremia; K70.10 Alcoholic hepatitis without ascites; D53.9 Nutritional anemia, unspecified; D69.6 Thrombocytopenia, unspecified; E83.42 Hypomagnesemia; E78.5 Hyperlipidemia, unspecified; F41.9 Anxiety disorder, unspecified; F10.10 Alcohol abuse, uncomplicated; E03.9 Hypothyroidism, unspecified